=== PATIENT | female | born 1970 | race Two or more races ===

== ENCOUNTER 2022-05-18 06:24 | Day surgery (SDC) | payer OTHER ==
[~2022-05-18] VITALS: Ht 160 cm; Wt 56.7 kg
[~2022-05-18 06:24] MED LIST: PROTONIX20 MG PO; ZYRTEC10 M3 PO
[2022-05-18] MEDS ORDERED: ANTIVERT25 M2 PO (15:51)
[2022-05-18] MEDS ORDERED: CILOXAN5 ML OTIC (15:52)
[2022-05-18] MEDS ORDERED: CEPHALEXIN500 MG PO (15:52)
== END 2022-05-18 18:15 | disposition home or self-care (01) ==
LOC: CIR.AMB 06:24
PROVIDERS: ATTEND Otolaryngology Otology & Neurotology
DX: H80.91 Unspecified otosclerosis, right ear (principal); H90.A11 Conductive hearing loss, unilateral, right ear with restricted hearing on the contralateral side; Z20.822 Contact with and (suspected) exposure to COVID-19

== ENCOUNTER 2022-12-11 12:10 | Outpatient (CLI) | payer OTHER ==
[~2022-12-11 12:10] MED LIST changes: +ANTIVERT25 M2 PO; +CEPHALEXIN500 MG PO; +CILOXAN5 ML OTIC
== END 2022-12-11 12:20 | disposition home or self-care (01) ==
LOC: TOM 12:10
PROVIDERS: ATTEND Otolaryngology Otology & Neurotology
DX: H90.A12 Conductive hearing loss, unilateral, left ear with restricted hearing on the contralateral side (principal)

== ENCOUNTER 2023-06-21 05:24 | Day surgery (SDC) | payer OTHER ==
[2023-06-18 10:48] LABS: HEMATOCRIT 44.5 % (36.0-45.00); HEMOGLOBIN 15.2 g/dL (12.0-15.00); MEAN CELL VOLUME 90.9 fL (80.00-100.00); MEAN CORPUSCULAR HEMOGLOBIN 31.1 pg (27.00-32.0); MEAN CORPUSCULAR HGB CONC 34.2 g/dl (32.0-36.0); PLATELET COUNT 191 K/uL (150-450); RED BLOOD COUNT 4.89 M/uL (4.00-6.00); RED CELL DISTRIBUTION WIDTH 12.5 % (11.5-14.5)
[2023-06-18 10:51] LABS: URINE APPEARANCE Clear; URINE BILIRRUBIN Negative (NEGATIVE); URINE BLOOD Negative; URINE COLOR Yellow; URINE GLUCOSE Negative (NEGATIVE); URINE LEUKOCYTE Trace; URINE NITRATE Negative; URINE PROTEIN Negative (NEGATIVE); URINE UROBILINOGEN 0.2 E.U./dl
[2023-06-18 10:52] LABS: URINE BACTERIA 864.1 uL (0.0-1933); URINE EPITHELIAL CELLS 19.7 uL (0.0-38.8); URINE RBC 2.5 uL (0.0-20.8); URINE WBC 25.8 uL (0.0-23.2)
[2023-06-18 11:21] LABS: ALBUMIN 4.2 gm/dL (3.4-5.0); BILIRUBIN TOTAL 1.35 mg/dL (0.3-1.2); CALCIUM 9.7 mg/dL (8.5-10.1); CREATININE SERUM 0.97 mg/dL (0.55-1.02); GFR 60.07; GLOBULINA 3.3 G/DL (2.4-3.5); PHOSPHOROUS 3.3 mg/dL (2.5-4.9); POTASSIUM 4.66 mEq/L (3.5-5.1); TOTAL PROTEIN 7.5 gm/dL (6.4-8.2)
[2023-06-18 11:22] LABS: INR 1.09; PROTHROMBIN TIME 11.4 SECONDS (9.0-11.5)
[2023-06-18 11:23] LABS: PARTIAL THROMBOPLASTIN TIME 32.8 SECONDS (22.0-34.0)
[~2023-06-21] VITALS: Ht 160 cm; Wt 64.9 kg
[~2023-06-21 05:24] MED LIST changes: +LEXAPRO5 MG PO
[2023-06-21] MEDS ORDERED: CEFAZOLIN SODIUM 1,000 MG VIAL ONE (07:06)
[2023-06-21] MEDS ORDERED: POVIDONE-IODINE 118 ML BOTT TOP ONE ×2 (08:17→09:45)
[2023-06-21] MEDS ORDERED: LIDOCAINE HCL 1%/Epi 20ML VIAL IJ ONE ×2 (08:17→09:45)
[2023-06-21] MEDS ORDERED: EPINEPHRINE HCL/PF 1 MG/ML AMPUL ONE (08:17)
[2023-06-21] MEDS ORDERED: DEXAMETHASONE SODIUM PHOSPHATE 4 MG/ML VIAL ONE (08:19)
[2023-06-21] MEDS ORDERED: BACITRACIN 28.35 GM OINT.TUBE TOP ONE ×2 (08:20→10:00)
[2023-06-21] MEDS ORDERED: POVIDONE-IODINE 3 EA MED..SWAB TOP ONE (09:15)
[2023-06-21] MEDS ORDERED: DEXAMETHASONE SODIUM PHOSPHATE 4 MG/ML VIAL IV ONE (09:45)
[2023-06-21] MEDS ORDERED: CEFAZOLIN SODIUM 1,000 MG VIAL IV ONE (09:45)
[2023-06-21] MEDS ORDERED: EPINEPHRINE HCL/PF 1 MG/ML AMPUL IJ ONE (09:45)
[2023-06-21] MEDS ORDERED: CIPROFLOXACIN HCL 0.175 MG/DR DROPS OTIC ONE (09:45)
[2023-06-21] MEDS ORDERED: POVIDONE-IODINE 0.75 OZ PACKET TOP ONE (10:15)
[2023-06-21] MEDS ORDERED: ANTIVERT25 M2 PO (10:53)
[2023-06-21] MEDS ORDERED: CEPHALEXIN500 M1 PO (10:53)
[2023-06-21] MEDS ORDERED: ONDANSETRON HCL 2 MG/ML VIAL ONE (12:01)
== END 2023-06-21 13:50 | disposition home or self-care (01) ==
LOC: CIR.AMB 05:24
PROVIDERS: ATTEND Otolaryngology Otology & Neurotology
DX: H80.91 Unspecified otosclerosis, right ear (principal); H90.A11 Conductive hearing loss, unilateral, right ear with restricted hearing on the contralateral side; Z20.822 Contact with and (suspected) exposure to COVID-19